=== PATIENT | male | born 1945 | race Caucasian/White ===

== ENCOUNTER 2017-06-12 13:46 | Emergency (ER) | payer MEDICARE ==
[~2017-06-12] VITALS: Ht 172.7 cm; Wt 100.0 kg
[~2017-06-12 13:46] MED LIST: ADVAIR DISK1 INH; ALL DAY10 MG PO; ASPIRIN EC81 MG PO; COMBIVIR 1501 COMBO PO; HYDROCHLOROT12.5 MG PO; LIPITOR20 M1 PO; LOSARTAN POT50 MG PO; MONTELUKAST SOD10 MG PO; MULTI VIT PO; NOVOLOG MIX SC; RANITIDINE150 M1 PO; SERTRALINE50 MG PO; ZOFRAN ODT4 MG PO; ZOFRAN4 M1 PO
[2017-06-12] MEDS ORDERED: MOTRIN400 MG PO (15:02)
[2017-06-12 15:33] VITALS: BP 140/78
== END 2017-06-12 15:33 | disposition home or self-care (01) ==
LOC: ED 13:46
DX: M25.552 Pain in left hip (principal); R10.32 Left lower quadrant pain

== ENCOUNTER 2017-08-03 10:26 | Emergency (ER) | payer MEDICARE ==
[~2017-08-03] VITALS: Ht 172.7 cm; Wt 100.0 kg
[~2017-08-03 10:26] MED LIST changes: +MOTRIN400 MG PO
[2017-08-03 11:07] LABS: HEMATOCRIT 49.6 % (39.0-50.0); HEMOGLOBIN 16.3 g/dl (14.0-18.0); IMMATURE GRANULOCYTES 2.7 % (0.0-1.0); MEAN CELL VOLUME 91.2 fL CALC (80.0-100.0); MEAN CORPUSCULAR HGB CONC 32.9 g/L CALC (32.0-36.0); PLATELET COUNT 244 thou/uL (130-400); RED BLOOD COUNT 5.44 mill/uL (4.70-6.10); RED CELL DISTRI WIDTH 13.8 % (11.5-15.5)
[2017-08-03 11:26] LABS: ANION GAP 29 (6-22 (CALC)); BUN 44 mg/dL (8-23); BUN/CREATININE RATIO 19 (12-20 (CALC)); CARBON DIOXIDE 16 mmol/l (22-30); CHLORIDE 92 mmol/l (95-108); CREATININE 2.3 mg/dL (0.7-1.3); GFR 28 ML/MIN (>=60 (CALC)); GFR FOR AFR.AMER. 34 ML/MIN (>=60 (CALC)); MANUAL DIFFERENTIAL YES; SODIUM 132 mmol/l (137-146)
[2017-08-03 11:36] LABS: BAND 25 % (0-8); PLATELET ESTIMATE NORMAL
[2017-08-03 15:17] VITALS: BP 141/60
== END 2017-08-03 15:00 | disposition short-term general hospital (02) ==
LOC: ED 10:26 → ED-I 11:48 → ED 15:00
PROVIDERS: Family Medicine
PROC: 0BH17EZ Insertion of Endotracheal Airway into Trachea, Via Natural or Artificial Opening (ICD-10-PCS; principal; 2017-08-03)
PROC: 5A1935Z Respiratory Ventilation, Less than 24 Consecutive Hours (ICD-10-PCS; 2017-08-03)
PROC: 0T9B70Z Drainage of Bladder with Drainage Device, Via Natural or Artificial Opening (ICD-10-PCS; 2017-08-03)
PROC: 02HV33Z Insertion of Infusion Device into Superior Vena Cava, Percutaneous Approach (ICD-10-PCS; 2017-08-03)
DX: A41.9 Sepsis, unspecified organism (principal); R65.21 Severe sepsis with septic shock; J18.9 Pneumonia, unspecified organism; R06.03 Acute respiratory distress; J44.0 Chronic obstructive pulmonary disease with (acute) lower respiratory infection; I10 Essential (primary) hypertension; E11.9 Type 2 diabetes mellitus without complications; Y95 Nosocomial condition
CPT/HCPCS: J0692; J2060

== ENCOUNTER 2017-08-22 12:48 | Inpatient (IN) | payer MEDICARE ==
[2017-08-22] VITALS (14 sets, daily range): BP systolic 76–148; BP diastolic 41–85
[~2017-08-22] VITALS: Ht 152.4 cm; Wt 96.0 kg
[2017-08-22] MEDS ORDERED: TYLENOL325 M2 (13:09)
[2017-08-22] MEDS ORDERED: PROVENTIL0.083 % IN (13:10)
[2017-08-22] MEDS ORDERED: AMLODIPINE BESY10 MG PO (13:11)
[2017-08-22] MEDS ORDERED: BIOTEN1 (13:11)
[2017-08-22] MEDS ORDERED: CATAPRES-T0.2 MG/21 TD (13:12)
[2017-08-22] MEDS ORDERED: LYRICA100 MG PO (13:15)
[2017-08-22] MEDS ORDERED: LEVOCETIRIZINE D5 MG (13:15)
[2017-08-22] MEDS ORDERED: METOCLOPRAMIDE H5 MG PO (13:16)
[2017-08-22] MEDS ORDERED: METOPROL TAR25 MG PO (13:16)
[2017-08-22] MEDS ORDERED: NYSTATI1 TOP (13:17)
[2017-08-22] MEDS ORDERED: MILK OF MAG30 ML/UDC PO (13:17)
[2017-08-22] MEDS ORDERED: FIRST-OMEPRAZ2 MG/ML PO (13:18)
[2017-08-22] MEDS ORDERED: PERCOCET 5/325M1 TAB PO (13:19)
[2017-08-22] MEDS ORDERED: VITAMI XX (13:19)
[2017-08-22] MEDS ORDERED: [UNRECOGNIZED DRUG - OTHER] (13:20)
[2017-08-22 13:22] LABS: IMMATURE GRANULOCYTES 0.8 % (0.0-1.0); MEAN CELL VOLUME 93.8 fL CALC (80.0-100.0); MEAN CORPUSCULAR HGB 29.7 pG CALC (26.0-32.0); MEAN CORPUSCULAR HGB CONC 31.7 g/L CALC (32.0-36.0); NEUT# 10.79 thou/uL (1.82-7.42); RED BLOOD COUNT 4.17 mill/uL (4.70-6.10); RED CELL DISTRI WIDTH 13.9 % (11.5-15.5)
[2017-08-22 13:26] LABS: HEMATOCRIT 39.1 % (39.0-50.0); HEMOGLOBIN 12.4 g/dl (14.0-18.0)
[2017-08-22 13:36] LABS: ALBUMIN 3.4 g/dL (3.2-5.0); BILIRUBIN, TOTAL 0.4 mg/dL (0.0-1.4); CREATININE 2.3 mg/dL (0.7-1.3); TOTAL PROTEIN 7.9 g/dL (6.3-8.2)
[2017-08-22 13:38] LABS: INFLUENZA A NONE DETECTED (NONE DETECT)
[2017-08-22 13:39] LABS: INFLUENZA B POSITIVE (NONE DETECT)
[2017-08-22 13:42] LABS: POTASSIUM 5.7 mmol/l (3.5-5.1)
[2017-08-23] VITALS (51 sets, daily range): BP systolic 98–168; BP diastolic 51–77
[2017-08-23 05:15] LABS: IMMATURE GRANULOCYTES 0.4 % (0.0-1.0); MEAN CELL VOLUME 93.5 fL CALC (80.0-100.0); MEAN CORPUSCULAR HGB 29.5 pG CALC (26.0-32.0); MEAN CORPUSCULAR HGB CONC 31.6 g/L CALC (32.0-36.0); NEUT# 9.81 thou/uL (1.82-7.42); RED BLOOD COUNT 3.52 mill/uL (4.70-6.10); RED CELL DISTRI WIDTH 13.7 % (11.5-15.5)
[2017-08-23 05:21] LABS: HEMATOCRIT 32.9 % (39.0-50.0); HEMOGLOBIN 10.4 g/dl (14.0-18.0)
[2017-08-23 05:31] LABS: BILIRUBIN, TOTAL 0.3 mg/dL (0.0-1.4); CREATININE 1.9 mg/dL (0.7-1.3)
[2017-08-23 05:35] LABS: ALBUMIN 2.5 g/dL (3.2-5.0); POTASSIUM 5.9 mmol/l (3.5-5.1); TOTAL PROTEIN 6.2 g/dL (6.3-8.2)
[2017-08-24] VITALS (11 sets, daily range): BP systolic 127–185; BP diastolic 53–82
[2017-08-24 05:32] LABS: HEMATOCRIT 33.7 % (39.0-50.0); HEMOGLOBIN 10.8 g/dl (14.0-18.0); IMMATURE GRANULOCYTES 0.5 % (0.0-1.0); MEAN CELL VOLUME 93.6 fL CALC (80.0-100.0); NEUT# 10.08 thou/uL (1.82-7.42); RED BLOOD COUNT 3.6 mill/uL (4.70-6.10); RED CELL DISTRI WIDTH 13.7 % (11.5-15.5)
[2017-08-24 05:44] LABS: ALBUMIN 2.6 g/dL (3.2-5.0); BILIRUBIN, TOTAL 0.3 mg/dL (0.0-1.4); CREATININE 1.5 mg/dL (0.7-1.3); TOTAL PROTEIN 6.3 g/dL (6.3-8.2)
[2017-08-24 05:49] LABS: POTASSIUM 4.6 mmol/l (3.5-5.1)
[2017-08-25] VITALS (13 sets, daily range): BP systolic 127–202; BP diastolic 58–98
[2017-08-25 08:55] LABS: HEMATOCRIT 36.6 % (39.0-50.0); HEMOGLOBIN 11.5 g/dl (14.0-18.0); IMMATURE GRANULOCYTES 0.8 % (0.0-1.0); MEAN CELL VOLUME 94.3 fL CALC (80.0-100.0); MEAN CORPUSCULAR HGB 29.6 pG CALC (26.0-32.0); MEAN CORPUSCULAR HGB CONC 31.4 g/L CALC (32.0-36.0); NEUT# 8.5 thou/uL (1.82-7.42); RED BLOOD COUNT 3.88 mill/uL (4.70-6.10)
[2017-08-25 09:23] LABS: ANION GAP 14 (6-22 (CALC)); BUN 44 mg/dL (8-23); BUN/CREATININE RATIO 36 (12-20 (CALC)); CARBON DIOXIDE 28 mmol/l (22-30); CHLORIDE 111 mmol/l (95-108); CREATININE 1.3 mg/dL (0.7-1.3); GFR 55 ML/MIN (>=60 (CALC)); GFR FOR AFR.AMER. > 60 ML/MIN (>=60 (CALC)); POTASSIUM 4.4 mmol/l (3.5-5.1); SODIUM 149 mmol/l (137-146)
[2017-08-25 14:34] LABS: PROTHROMBIN TIME 10.9 SECONDS (9.0-12.5)
[2017-08-26] VITALS (13 sets, daily range): BP systolic 151–191; BP diastolic 64–93
[2017-08-26 05:10] LABS: ALBUMIN 2.6 g/dL (3.2-5.0); ALKALINE PHOSPHATASE 79 u/l (38-126); ANION GAP 14 (6-22 (CALC)); BILIRUBIN, TOTAL 0.2 mg/dL (0.0-1.4); BUN 43 mg/dL (8-23); BUN/CREATININE RATIO 33 (12-20 (CALC)); CARBON DIOXIDE 29 mmol/l (22-30); CHLORIDE 114 mmol/l (95-108); CREATININE 1.3 mg/dL (0.7-1.3); GFR 55 ML/MIN (>=60 (CALC)); GFR FOR AFR.AMER. > 60 ML/MIN (>=60 (CALC)); POTASSIUM 4.8 mmol/l (3.5-5.1); SGOT/AST 27 u/l (19-48); SGPT/ALT 41 u/l (11-66); SODIUM 152 mmol/l (137-146); TOTAL PROTEIN 6.2 g/dL (6.3-8.2)
[2017-08-26 05:52] LABS: HEMATOCRIT 36.7 % (39.0-50.0); HEMOGLOBIN 11.5 g/dl (14.0-18.0); IMMATURE GRANULOCYTES 1.4 % (0.0-1.0); MEAN CELL VOLUME 94.8 fL CALC (80.0-100.0); MEAN CORPUSCULAR HGB 29.7 pG CALC (26.0-32.0); MEAN CORPUSCULAR HGB CONC 31.3 g/L CALC (32.0-36.0); NEUT# 6.43 thou/uL (1.82-7.42); RED BLOOD COUNT 3.87 mill/uL (4.70-6.10)
[2017-08-27] VITALS (10 sets, daily range): BP systolic 158–204; BP diastolic 59–92
[2017-08-27 05:28] LABS: HEMATOCRIT 35.8 % (39.0-50.0); HEMOGLOBIN 11.1 g/dl (14.0-18.0); IMMATURE GRANULOCYTES 0.3 % (0.0-1.0); MEAN CELL VOLUME 93.5 fL CALC (80.0-100.0); NEUT# 7.71 thou/uL (1.82-7.42); RED BLOOD COUNT 3.83 mill/uL (4.70-6.10); RED CELL DISTRI WIDTH 13.5 % (11.5-15.5)
[2017-08-27 05:42] LABS: ALBUMIN 2.5 g/dL (3.2-5.0); ALKALINE PHOSPHATASE 68 u/l (38-126); ANION GAP 12 (6-22 (CALC)); BILIRUBIN, TOTAL 0.2 mg/dL (0.0-1.4); BUN 43 mg/dL (8-23); BUN/CREATININE RATIO 37 (12-20 (CALC)); CARBON DIOXIDE 33 mmol/l (22-30); CHLORIDE 111 mmol/l (95-108); CREATININE 1.2 mg/dL (0.7-1.3); GFR 60 ML/MIN (>=60 (CALC)); GFR FOR AFR.AMER. > 60 ML/MIN (>=60 (CALC)); POTASSIUM 4.6 mmol/l (3.5-5.1); SGOT/AST 22 u/l (19-48); SGPT/ALT 36 u/l (11-66); SODIUM 152 mmol/l (137-146); TOTAL PROTEIN 5.9 g/dL (6.3-8.2)
[2017-08-28 03:45] VITALS: BP 172/74
[2017-08-28 04:58] LABS: HEMATOCRIT 34.2 % (39.0-50.0); HEMOGLOBIN 10.9 g/dl (14.0-18.0); IMMATURE GRANULOCYTES 0.6 % (0.0-1.0); MEAN CELL VOLUME 91.2 fL CALC (80.0-100.0); MEAN CORPUSCULAR HGB 29.1 pG CALC (26.0-32.0); MEAN CORPUSCULAR HGB CONC 31.9 g/L CALC (32.0-36.0); NEUT# 6.94 thou/uL (1.82-7.42); RED BLOOD COUNT 3.75 mill/uL (4.70-6.10); RED CELL DISTRI WIDTH 13.2 % (11.5-15.5)
[2017-08-28 05:20] LABS: ANION GAP 11 (6-22 (CALC)); BUN 38 mg/dL (8-23); BUN/CREATININE RATIO 36 (12-20 (CALC)); CARBON DIOXIDE 35 mmol/l (22-30); CHLORIDE 106 mmol/l (95-108); CREATININE 1.1 mg/dL (0.7-1.3); GFR > 60 ML/MIN (>=60 (CALC)); GFR FOR AFR.AMER. > 60 ML/MIN (>=60 (CALC)); POTASSIUM 4.3 mmol/l (3.5-5.1); SODIUM 148 mmol/l (137-146)
[2017-08-28 07:45] VITALS: BP 193/83
[2017-08-28 16:00] VITALS: BP 165/79
[2017-08-28 19:57] VITALS: BP 179/82
[2017-08-29 00:34] VITALS: BP 164/72
[2017-08-29 05:04] LABS: HEMATOCRIT 35.3 % (39.0-50.0); HEMOGLOBIN 11.7 g/dl (14.0-18.0); IMMATURE GRANULOCYTES 1.6 % (0.0-1.0); MEAN CELL VOLUME 89.1 fL CALC (80.0-100.0); MEAN CORPUSCULAR HGB 29.5 pG CALC (26.0-32.0); MEAN CORPUSCULAR HGB CONC 33.1 g/L CALC (32.0-36.0); NEUT# 6.04 thou/uL (1.82-7.42); RED BLOOD COUNT 3.96 mill/uL (4.70-6.10); RED CELL DISTRI WIDTH 12.9 % (11.5-15.5)
[2017-08-29 05:11] VITALS: BP 169/104
[2017-08-29 05:24] LABS: ANION GAP 12 (6-22 (CALC)); BUN 42 mg/dL (8-23); BUN/CREATININE RATIO 40 (12-20 (CALC)); CARBON DIOXIDE 33 mmol/l (22-30); CHLORIDE 101 mmol/l (95-108); GFR > 60 ML/MIN (>=60 (CALC)); GFR FOR AFR.AMER. > 60 ML/MIN (>=60 (CALC)); SODIUM 142 mmol/l (137-146)
[2017-08-29 08:00] VITALS: BP 170/78
[2017-08-29 11:06] VITALS: BP 160/88
[2017-08-29 16:05] VITALS: BP 154/69
[2017-08-29 19:50] VITALS: BP 159/70
[2017-08-30 04:33] VITALS: BP 170/71
[2017-08-30 07:11] VITALS: BP 161/69
[2017-08-30 15:27] VITALS: BP 167/75
== END 2017-08-30 16:47 | DRG 177 ==
LOC: ED 12:48 → ED-I 13:55 → ED 14:17 → MS2 14:18 → ICU 14:18 → MS2 08-27 11:50
PROVIDERS: Emergency Medicine; ADMIT Internal Medicine Geriatric Medicine; ATTEND Internal Medicine Geriatric Medicine
PROC: 0T9B70Z Drainage of Bladder with Drainage Device, Via Natural or Artificial Opening (ICD-10-PCS; principal; 2017-08-22)
PROC: 5A09357 Assistance with Respiratory Ventilation, Less than 24 Consecutive Hours, Continuous Positive Airway Pressure (ICD-10-PCS; 2017-08-22)
PROC: 02HV33Z Insertion of Infusion Device into Superior Vena Cava, Percutaneous Approach (ICD-10-PCS; 2017-08-25)
PROC: B518ZZA Fluoroscopy of Superior Vena Cava, Guidance (ICD-10-PCS; 2017-08-25)
PROC: 0W993ZZ Drainage of Right Pleural Cavity, Percutaneous Approach (ICD-10-PCS; 2017-08-26)
DX: J69.0 Pneumonitis due to inhalation of food and vomit (principal); J96.01 Acute respiratory failure with hypoxia; J91.8 Pleural effusion in other conditions classified elsewhere; I95.9 Hypotension, unspecified; E11.22 Type 2 diabetes mellitus with diabetic chronic kidney disease; R68.0 Hypothermia, not associated with low environmental temperature; J44.9 Chronic obstructive pulmonary disease, unspecified; I12.9 Hypertensive chronic kidney disease with stage 1 through stage 4 chronic kidney disease, or unspecified chronic kidney disease; N18.9 Chronic kidney disease, unspecified; E66.9 Obesity, unspecified; I25.10 Atherosclerotic heart disease of native coronary artery without angina pectoris; K21.9 Gastro-esophageal reflux disease without esophagitis; M19.90 Unspecified osteoarthritis, unspecified site; M54.5 Low back pain; G89.29 Other chronic pain; Z93.1 Gastrostomy status; Z79.4 Long term (current) use of insulin
CPT/HCPCS: J3370; Q9967

== ENCOUNTER 2017-11-07 11:07 | Inpatient (IN) | payer MEDICARE ==
[2017-11-07] VITALS (10 sets, daily range): BP systolic 104–136; BP diastolic 55–70
[~2017-11-07] VITALS: Ht 172.7 cm; Wt 88.0 kg
[~2017-11-07 11:07] MED LIST changes: +AMLODIPINE BESY10 MG PO; +BIOTEN1; +CATAPRES-T0.2 MG/21 TD; +FIRST-OMEPRAZ2 MG/ML PO; +LEVOCETIRIZINE D5 MG; +LYRICA100 MG PO; +METOCLOPRAMIDE H5 MG PO; +METOPROL TAR25 MG PO; +MILK OF MAG30 ML/UDC PO; +NYSTATI1 TOP; +PERCOCET 5/325M1 TAB PO; +PROVENTIL0.083 % IN; +TYLENOL325 M2; +VITAMI XX; +[UNRECOGNIZED DRUG - OTHER]
[2017-11-07 11:39] LABS: HEMOGLOBIN 13.1 g/dl (14.0-18.0); IMMATURE GRANULOCYTES 0.5 % (0.0-5.0); MEAN CELL VOLUME 89.6 fL CALC (80.0-100.0); MEAN CORPUSCULAR HGB 30.9 pG CALC (26.0-32.0); MEAN CORPUSCULAR HGB CONC 34.5 g/L CALC (32.0-36.0); RED BLOOD COUNT 4.24 mill/uL (4.70-6.10); RED CELL DISTRI WIDTH 13.9 % (11.5-15.5)
[2017-11-07] MEDS ORDERED: FUROSEMIDE20 MG PO (11:39)
[2017-11-07] MEDS ORDERED: MULIT-VITAMI PEG (11:41)
[2017-11-07] MEDS ORDERED: LEVEMIR100 UNIT/M SC (11:41)
[2017-11-07] MEDS ORDERED: FAMOTIDINE20 M1 PO (11:43)
[2017-11-07] MEDS ORDERED: METOPROL TAR25 MG PO (11:44)
[2017-11-07] MEDS ORDERED: HUMALOG100 UNIT/M SC (11:46)
[2017-11-07] MEDS ORDERED: SERTRALINE HCL50 MG PO (11:46)
[2017-11-07] MEDS ORDERED: MAGNESIUM400 M1 PO (11:47)
[2017-11-07] MEDS ORDERED: VIT B-COMPLX100 MG PO (11:48)
[2017-11-07] MEDS ORDERED: VITAMIN B-12500 MCG PO (11:49)
[2017-11-07 11:57] LABS: BILIRUBIN, TOTAL 0.8 mg/dL (0.0-1.4); BUN 32 mg/dL (8-23); BUN/CREATININE RATIO 24 (12-20 (CALC)); CHLORIDE 98 mmol/l (95-108); CREATININE 1.3 mg/dL (0.7-1.3); GFR 55 ML/MIN (>=60 (CALC)); GFR FOR AFR.AMER. > 60 ML/MIN (>=60 (CALC)); LIPASE 51 u/l (23-300); POTASSIUM 4.5 mmol/l (3.5-5.1); SGOT/AST 22 u/l (19-48); SGPT/ALT 27 u/l (11-66); SODIUM 138 mmol/l (137-146)
[2017-11-07 12:06] LABS: ALBUMIN 4.3 g/dL (3.2-5.0); ALKALINE PHOSPHATASE 155 u/l (38-126); ANION GAP 22 (6-22 (CALC)); CARBON DIOXIDE 23 mmol/l (22-30); TOTAL PROTEIN 7.8 g/dL (6.3-8.2)
[2017-11-07 12:53] LABS: URINE BILIRUBIN - DIPSTICK NEGATIVE (NEGATIVE); URINE BLOOD DIPSTICK NEGATIVE (NEGATIVE); URINE COLOR YELLOW; URINE GLUCOSE - DIPSTICK 100 mg/dL (NEGATIVE); URINE KETONE NEGATIVE (NEGATIVE); URINE LEUK ESTERASE NEGATIVE (NEGATIVE); URINE NITRITE - DIPSTICK NEGATIVE (Negative); URINE PH 6.5 (4.5-8.0); URINE PROTEIN - DIPSTICK 30 mg/dL (NEG-TRACE); URINE SPECIFIC GRAVITY <=1.005; URINE UROBILINOGEN - DIPSTICK 0.2 E.U./dL (0.2)
[2017-11-07 12:54] LABS: URINE CLARITY SL CLOUDY
[2017-11-07 12:55] LABS: URINE EPITHELIAL CELLS FEW EPI/hpf (0-FEW); URINE MUCUS FEW hpf (NONE-FEW)
[2017-11-08] VITALS (12 sets, daily range): BP systolic 103–186; BP diastolic 58–93
[2017-11-08 05:10] LABS: HEMATOCRIT 32.2 % (39.0-50.0); HEMOGLOBIN 10.8 g/dl (14.0-18.0); IMMATURE GRANULOCYTES 0.4 % (0.0-5.0); MEAN CELL VOLUME 91.2 fL CALC (80.0-100.0); MEAN CORPUSCULAR HGB 30.6 pG CALC (26.0-32.0); MEAN CORPUSCULAR HGB CONC 33.5 g/L CALC (32.0-36.0); NEUT# 7.68 thou/uL (1.82-7.42); RED BLOOD COUNT 3.53 mill/uL (4.70-6.10); RED CELL DISTRI WIDTH 13.9 % (11.5-15.5)
[2017-11-08 05:19] LABS: ALBUMIN 3.3 g/dL (3.2-5.0); ALKALINE PHOSPHATASE 109 u/l (38-126); ANION GAP 15 (6-22 (CALC)); BILIRUBIN, TOTAL 0.6 mg/dL (0.0-1.4); BUN 22 mg/dL (8-23); BUN/CREATININE RATIO 21 (12-20 (CALC)); CARBON DIOXIDE 24 mmol/l (22-30); CHLORIDE 107 mmol/l (95-108); GFR > 60 ML/MIN (>=60 (CALC)); GFR FOR AFR.AMER. > 60 ML/MIN (>=60 (CALC)); POTASSIUM 4.1 mmol/l (3.5-5.1); SGOT/AST 17 u/l (19-48); SGPT/ALT 25 u/l (11-66); SODIUM 142 mmol/l (137-146); TOTAL PROTEIN 6.2 g/dL (6.3-8.2)
[2017-11-09] VITALS (11 sets, daily range): BP systolic 110–181; BP diastolic 56–80
[2017-11-09 05:21] LABS: HEMATOCRIT 36.2 % (39.0-50.0); HEMOGLOBIN 12.3 g/dl (14.0-18.0); IMMATURE GRANULOCYTES 0.6 % (0.0-5.0); MEAN CORPUSCULAR HGB 30.6 pG CALC (26.0-32.0); NEUT# 9.26 thou/uL (1.82-7.42); RED BLOOD COUNT 4.02 mill/uL (4.70-6.10); RED CELL DISTRI WIDTH 13.5 % (11.5-15.5)
[2017-11-09 05:33] LABS: ALBUMIN 3.8 g/dL (3.2-5.0); ALKALINE PHOSPHATASE 129 u/l (38-126); ANION GAP 20 (6-22 (CALC)); BILIRUBIN, TOTAL 0.7 mg/dL (0.0-1.4); BUN 18 mg/dL (8-23); BUN/CREATININE RATIO 19 (12-20 (CALC)); CARBON DIOXIDE 22 mmol/l (22-30); CHLORIDE 106 mmol/l (95-108); GFR > 60 ML/MIN (>=60 (CALC)); GFR FOR AFR.AMER. > 60 ML/MIN (>=60 (CALC)); POTASSIUM 3.6 mmol/l (3.5-5.1); SGOT/AST 24 u/l (19-48); SGPT/ALT 26 u/l (11-66); SODIUM 145 mmol/l (137-146); TOTAL PROTEIN 7.2 g/dL (6.3-8.2)
[2017-11-10] VITALS (11 sets, daily range): BP systolic 113–176; BP diastolic 54–101
[2017-11-10 05:21] LABS: HEMATOCRIT 35.3 % (39.0-50.0); HEMOGLOBIN 12.1 g/dl (14.0-18.0); IMMATURE GRANULOCYTES 0.2 % (0.0-5.0); MEAN CORPUSCULAR HGB 31.2 pG CALC (26.0-32.0); MEAN CORPUSCULAR HGB CONC 34.3 g/L CALC (32.0-36.0); NEUT# 5.39 thou/uL (1.82-7.42); RED BLOOD COUNT 3.88 mill/uL (4.70-6.10); RED CELL DISTRI WIDTH 13.6 % (11.5-15.5)
[2017-11-10 05:40] LABS: ANION GAP 13 (6-22 (CALC)); BUN 20 mg/dL (8-23); BUN/CREATININE RATIO 22 (12-20 (CALC)); CARBON DIOXIDE 27 mmol/l (22-30); CHLORIDE 110 mmol/l (95-108); CREATININE 0.9 mg/dL (0.7-1.3); GFR > 60 ML/MIN (>=60 (CALC)); GFR FOR AFR.AMER. > 60 ML/MIN (>=60 (CALC)); POTASSIUM 3.6 mmol/l (3.5-5.1); SODIUM 145 mmol/l (137-146)
[2017-11-11] VITALS (14 sets, daily range): BP systolic 146–196; BP diastolic 67–94
[2017-11-11 04:39] LABS: HEMATOCRIT 38.2 % (39.0-50.0); IMMATURE GRANULOCYTES 0.5 % (0.0-5.0); MEAN CELL VOLUME 88.8 fL CALC (80.0-100.0); MEAN CORPUSCULAR HGB 30.2 pG CALC (26.0-32.0); NEUT# 7.3 thou/uL (1.82-7.42); RED BLOOD COUNT 4.3 mill/uL (4.70-6.10); RED CELL DISTRI WIDTH 13.4 % (11.5-15.5)
[2017-11-11 04:57] LABS: ANION GAP 13 (6-22 (CALC)); BUN 20 mg/dL (8-23); BUN/CREATININE RATIO 23 (12-20 (CALC)); CARBON DIOXIDE 27 mmol/l (22-30); CHLORIDE 110 mmol/l (95-108); CREATININE 0.9 mg/dL (0.7-1.3); GFR > 60 ML/MIN (>=60 (CALC)); GFR FOR AFR.AMER. > 60 ML/MIN (>=60 (CALC)); POTASSIUM 3.1 mmol/l (3.5-5.1); SODIUM 146 mmol/l (137-146)
[2017-11-12 04:34] VITALS: BP 177/84
[2017-11-12 05:14] LABS: HEMOGLOBIN 11.6 g/dl (14.0-18.0); IMMATURE GRANULOCYTES 1.1 % (0.0-5.0); MEAN CELL VOLUME 91.4 fL CALC (80.0-100.0); MEAN CORPUSCULAR HGB 30.3 pG CALC (26.0-32.0); MEAN CORPUSCULAR HGB CONC 33.1 g/L CALC (32.0-36.0); NEUT# 7.41 thou/uL (1.82-7.42); RED BLOOD COUNT 3.83 mill/uL (4.70-6.10); RED CELL DISTRI WIDTH 13.9 % (11.5-15.5)
[2017-11-12 05:36] LABS: ANION GAP 13 (6-22 (CALC)); BUN 22 mg/dL (8-23); BUN/CREATININE RATIO 24 (12-20 (CALC)); CARBON DIOXIDE 26 mmol/l (22-30); CHLORIDE 111 mmol/l (95-108); CREATININE 0.9 mg/dL (0.7-1.3); GFR > 60 ML/MIN (>=60 (CALC)); GFR FOR AFR.AMER. > 60 ML/MIN (>=60 (CALC)); POTASSIUM 3.1 mmol/l (3.5-5.1); SODIUM 147 mmol/l (137-146)
[2017-11-12 08:17] VITALS: BP 183/71
[2017-11-12 14:56] VITALS: BP 174/78
[2017-11-12 16:46] VITALS: BP 145/86
[2017-11-12 19:45] VITALS: BP 175/82
[2017-11-12 22:39] VITALS: BP 145/67
[2017-11-13 00:32] VITALS: BP 170/73
[2017-11-13 01:45] VITALS: BP 136/61
[2017-11-13 04:29] LABS: HEMATOCRIT 33.8 % (39.0-50.0); HEMOGLOBIN 11.5 g/dl (14.0-18.0); IMMATURE GRANULOCYTES 0.8 % (0.0-5.0); MEAN CELL VOLUME 90.4 fL CALC (80.0-100.0); MEAN CORPUSCULAR HGB 30.7 pG CALC (26.0-32.0); NEUT# 6.04 thou/uL (1.82-7.42); RED BLOOD COUNT 3.74 mill/uL (4.70-6.10); RED CELL DISTRI WIDTH 13.6 % (11.5-15.5)
[2017-11-13 04:46] LABS: ANION GAP 12 (6-22 (CALC)); BUN 18 mg/dL (8-23); BUN/CREATININE RATIO 20 (12-20 (CALC)); CARBON DIOXIDE 27 mmol/l (22-30); CHLORIDE 108 mmol/l (95-108); CREATININE 0.9 mg/dL (0.7-1.3); GFR > 60 ML/MIN (>=60 (CALC)); GFR FOR AFR.AMER. > 60 ML/MIN (>=60 (CALC)); POTASSIUM 3.1 mmol/l (3.5-5.1); SODIUM 143 mmol/l (137-146)
[2017-11-13 05:00] VITALS: BP 160/80
[2017-11-13 07:51] VITALS: BP 140/56
[2017-11-13 16:00] VITALS: BP 177/83
[2017-11-13 19:45] VITALS: BP 148/59
[2017-11-14 04:04] VITALS: BP 187/76
[2017-11-14 04:56] LABS: HEMATOCRIT 30.7 % (39.0-50.0); HEMOGLOBIN 10.6 g/dl (14.0-18.0); IMMATURE GRANULOCYTES 0.9 % (0.0-5.0); MEAN CELL VOLUME 89.8 fL CALC (80.0-100.0); MEAN CORPUSCULAR HGB CONC 34.5 g/L CALC (32.0-36.0); NEUT# 4.63 thou/uL (1.82-7.42); RED BLOOD COUNT 3.42 mill/uL (4.70-6.10); RED CELL DISTRI WIDTH 13.2 % (11.5-15.5)
[2017-11-14 05:20] LABS: ANION GAP 11 (6-22 (CALC)); BUN 17 mg/dL (8-23); BUN/CREATININE RATIO 20 (12-20 (CALC)); CARBON DIOXIDE 28 mmol/l (22-30); CHLORIDE 104 mmol/l (95-108); CREATININE 0.9 mg/dL (0.7-1.3); GFR > 60 ML/MIN (>=60 (CALC)); GFR FOR AFR.AMER. > 60 ML/MIN (>=60 (CALC)); POTASSIUM 3.3 mmol/l (3.5-5.1); SODIUM 140 mmol/l (137-146)
[2017-11-14 06:00] VITALS: BP 149/58
[2017-11-14 08:30] VITALS: BP 189/73
[2017-11-14 11:30] VITALS: BP 174/78
[2017-11-14 16:10] VITALS: BP 165/72
[2017-11-14 19:00] VITALS: BP 182/83
[2017-11-14 20:49] LABS: C. DIFFICILE TOXIN A&B NEGATIVE (NEGATIVE)
[2017-11-15 00:50] VITALS: BP 176/69
[2017-11-15 05:01] VITALS: BP 153/59
[2017-11-15 05:56] LABS: HEMATOCRIT 31.6 % (39.0-50.0); IMMATURE GRANULOCYTES 0.9 % (0.0-5.0); MEAN CELL VOLUME 87.3 fL CALC (80.0-100.0); MEAN CORPUSCULAR HGB 30.4 pG CALC (26.0-32.0); MEAN CORPUSCULAR HGB CONC 34.8 g/L CALC (32.0-36.0); NEUT# 4.09 thou/uL (1.82-7.42); RED BLOOD COUNT 3.62 mill/uL (4.70-6.10)
[2017-11-15 06:11] LABS: ANION GAP 14 (6-22 (CALC)); BUN 13 mg/dL (8-23); BUN/CREATININE RATIO 17 (12-20 (CALC)); CARBON DIOXIDE 27 mmol/l (22-30); CHLORIDE 99 mmol/l (95-108); CREATININE 0.8 mg/dL (0.7-1.3); GFR > 60 ML/MIN (>=60 (CALC)); GFR FOR AFR.AMER. > 60 ML/MIN (>=60 (CALC)); POTASSIUM 3.4 mmol/l (3.5-5.1); SODIUM 137 mmol/l (137-146)
[2017-11-15 08:00] VITALS: BP 152/68
[2017-11-15 15:06] VITALS: BP 162/71
[2017-11-15 19:00] VITALS: BP 155/65
[2017-11-16 04:53] VITALS: BP 168/67
[2017-11-16 05:34] LABS: HEMATOCRIT 32.3 % (39.0-50.0); HEMOGLOBIN 11.4 g/dl (14.0-18.0); IMMATURE GRANULOCYTES 0.7 % (0.0-5.0); MEAN CELL VOLUME 86.6 fL CALC (80.0-100.0); MEAN CORPUSCULAR HGB 30.6 pG CALC (26.0-32.0); MEAN CORPUSCULAR HGB CONC 35.3 g/L CALC (32.0-36.0); NEUT# 3.8 thou/uL (1.82-7.42); RED BLOOD COUNT 3.73 mill/uL (4.70-6.10); RED CELL DISTRI WIDTH 12.8 % (11.5-15.5)
[2017-11-16 05:36] LABS: ANION GAP 15 (6-22 (CALC)); BUN 12 mg/dL (8-23); BUN/CREATININE RATIO 14 (12-20 (CALC)); CARBON DIOXIDE 28 mmol/l (22-30); CHLORIDE 97 mmol/l (95-108); CREATININE 0.8 mg/dL (0.7-1.3); GFR > 60 ML/MIN (>=60 (CALC)); GFR FOR AFR.AMER. > 60 ML/MIN (>=60 (CALC)); POTASSIUM 3.3 mmol/l (3.5-5.1); SODIUM 137 mmol/l (137-146)
[2017-11-16 08:02] VITALS: BP 181/91
[2017-11-16 11:20] VITALS: BP 169/70
[2017-11-16 15:44] VITALS: BP 150/73
[2017-11-16 20:00] VITALS: BP 148/79
[2017-11-17 04:00] VITALS: BP 151/68
[2017-11-17 05:08] LABS: HEMATOCRIT 32.7 % (39.0-50.0); HEMOGLOBIN 11.4 g/dl (14.0-18.0); IMMATURE GRANULOCYTES 0.6 % (0.0-5.0); MEAN CELL VOLUME 86.5 fL CALC (80.0-100.0); MEAN CORPUSCULAR HGB 30.2 pG CALC (26.0-32.0); MEAN CORPUSCULAR HGB CONC 34.9 g/L CALC (32.0-36.0); RED BLOOD COUNT 3.78 mill/uL (4.70-6.10)
[2017-11-17 05:28] LABS: ANION GAP 14 (6-22 (CALC)); BUN 14 mg/dL (8-23); BUN/CREATININE RATIO 15 (12-20 (CALC)); CARBON DIOXIDE 28 mmol/l (22-30); CHLORIDE 98 mmol/l (95-108); CREATININE 0.9 mg/dL (0.7-1.3); GFR > 60 ML/MIN (>=60 (CALC)); GFR FOR AFR.AMER. > 60 ML/MIN (>=60 (CALC)); POTASSIUM 3.7 mmol/l (3.5-5.1); SODIUM 136 mmol/l (137-146)
[2017-11-17] MEDS ORDERED: LEVAQUIN750 MG PO (08:32)
[2017-11-17 09:15] VITALS: BP 155/73
[2017-11-17 09:20] VITALS: BP 155/73
== END 2017-11-17 10:33 | disposition home health service (06) | DRG 178 ==
LOC: ED 11:07 → ED-I 13:33 → ED 14:08 → ICU 14:09 → MS2 11-11 16:42
PROVIDERS: Emergency Medicine; ADMIT Internal Medicine Geriatric Medicine; ATTEND Internal Medicine Geriatric Medicine
PROC: 0D20XUZ Change Feeding Device in Upper Intestinal Tract, External Approach (ICD-10-PCS; principal; 2017-11-11)
DX: J69.0 Pneumonitis due to inhalation of food and vomit (principal); E87.2 Acidosis; J91.8 Pleural effusion in other conditions classified elsewhere; K94.23 Gastrostomy malfunction; E11.43 Type 2 diabetes mellitus with diabetic autonomic (poly)neuropathy; K31.84 Gastroparesis; I12.9 Hypertensive chronic kidney disease with stage 1 through stage 4 chronic kidney disease, or unspecified chronic kidney disease; E11.22 Type 2 diabetes mellitus with diabetic chronic kidney disease; N18.9 Chronic kidney disease, unspecified; J44.9 Chronic obstructive pulmonary disease, unspecified; K29.70 Gastritis, unspecified, without bleeding; I25.10 Atherosclerotic heart disease of native coronary artery without angina pectoris; K21.9 Gastro-esophageal reflux disease without esophagitis; K27.9 Peptic ulcer, site unspecified, unspecified as acute or chronic, without hemorrhage or perforation; M19.90 Unspecified osteoarthritis, unspecified site; G89.29 Other chronic pain; M54.5 Low back pain; R09.02 Hypoxemia; F41.1 Generalized anxiety disorder; Y83.1 Surgical operation with implant of artificial internal device as the cause of abnormal reaction of the patient, or of later complication, without mention of misadventure at the time of the procedure
CPT/HCPCS: Q9967; S0164

== ENCOUNTER 2018-01-20 06:25 | Day surgery (SDC) | payer MEDICARE ==
[~2018-01-20 06:25] MED LIST changes: +FAMOTIDINE20 M1 PO; +FUROSEMIDE20 MG PO; +HUMALOG100 UNIT/M SC; +LEVAQUIN750 MG PO; +LEVEMIR100 UNIT/M SC; -LEVOCETIRIZINE D5 MG; +LEVOCETIRIZINE D5 MG PO; +LOSARTAN/HCT1 TA1 PO; +LYRICA50 MG PO; +MAGNESIUM400 M1 PO; +MULIT-VITAMI PEG; +OMEPRAZOLE20 M2 PO; +SERTRALINE HCL50 MG PO; +VIT B-COMPLX100 MG PO; +VITAMIN B-12500 MCG PO
[2018-01-20 08:35] VITALS: BP 98/56
== END 2018-01-20 08:45 | disposition home or self-care (01) ==
LOC: ENDO 06:25 → ORM 12:00 → ENDO 12:00
PROVIDERS: ATTEND Internal Medicine Gastroenterology
PROC: 0DB68ZX Excision of Stomach, Via Natural or Artificial Opening Endoscopic, Diagnostic (ICD-10-PCS; principal; 2018-01-20)
PROC: 0D758ZZ Dilation of Esophagus, Via Natural or Artificial Opening Endoscopic (ICD-10-PCS; 2018-01-20)
PROC: 0DP64UZ Removal of Feeding Device from Stomach, Percutaneous Endoscopic Approach (ICD-10-PCS; 2018-01-20)
PROC: 0DBK8ZX Excision of Ascending Colon, Via Natural or Artificial Opening Endoscopic, Diagnostic (ICD-10-PCS; 2018-01-20)
PROC: 0DBL8ZX Excision of Transverse Colon, Via Natural or Artificial Opening Endoscopic, Diagnostic (ICD-10-PCS; 2018-01-20)
PROC: 0DBN8ZX Excision of Sigmoid Colon, Via Natural or Artificial Opening Endoscopic, Diagnostic (ICD-10-PCS; 2018-01-20)
DX: R13.10 Dysphagia, unspecified (principal); K29.70 Gastritis, unspecified, without bleeding; K31.89 Other diseases of stomach and duodenum; Z43.1 Encounter for attention to gastrostomy; Z12.11 Encounter for screening for malignant neoplasm of colon; D12.0 Benign neoplasm of cecum; D12.2 Benign neoplasm of ascending colon; D12.5 Benign neoplasm of sigmoid colon; D12.3 Benign neoplasm of transverse colon; K57.30 Diverticulosis of large intestine without perforation or abscess without bleeding; K64.4 Residual hemorrhoidal skin tags; K64.8 Other hemorrhoids; I10 Essential (primary) hypertension; E11.9 Type 2 diabetes mellitus without complications; J44.9 Chronic obstructive pulmonary disease, unspecified

== ENCOUNTER → 2018-06-06 | Outpatient (REF) | payer MEDICARE ==
[2018-06-06 08:02] LABS: ALBUMIN 4.2 g/dL (3.2-5.0); BILIRUBIN, TOTAL 0.6 mg/dL (0.0-1.4); CHOLESTEROL HDL RATIO 3.5 (<4.4 (CALC)); TOTAL PROTEIN 7.4 g/dL (6.3-8.2)
== END | disposition home or self-care (01) ==
LOC: LAB 06:59
PROVIDERS: ATTEND Internal Medicine Geriatric Medicine
DX: E11.65 Type 2 diabetes mellitus with hyperglycemia (principal); E78.2 Mixed hyperlipidemia

== ENCOUNTER → 2018-07-05 | Outpatient (REF) | payer MEDICARE ==
[2018-07-05 08:01] LABS: HEMATOCRIT 43.4 % (39.0-50.0); HEMOGLOBIN 14.1 g/dl (14.0-18.0); IMMATURE GRANULOCYTES 0.4 % (0.0-5.0); MEAN CELL VOLUME 89.7 fL CALC (80.0-100.0); MEAN CORPUSCULAR HGB 29.1 pG CALC (26.0-32.0); MEAN CORPUSCULAR HGB CONC 32.5 g/L CALC (32.0-36.0); NEUT# 4.26 thou/uL (1.82-7.42); RED BLOOD COUNT 4.84 mill/uL (4.70-6.10); RED CELL DISTRI WIDTH 14.4 % (11.5-15.5)
[2018-07-05 08:18] LABS: ALBUMIN 4.4 g/dL (3.2-5.0); BILIRUBIN, TOTAL 0.5 mg/dL (0.0-1.4); CREATININE 1.8 mg/dL (0.7-1.3); POTASSIUM 4.9 mmol/l (3.5-5.1); TOTAL PROTEIN 7.4 g/dL (6.3-8.2)
== END | disposition home or self-care (01) ==
LOC: LAB 07:19
PROVIDERS: ATTEND Internal Medicine Geriatric Medicine
DX: I10 Essential (primary) hypertension (principal); E11.65 Type 2 diabetes mellitus with hyperglycemia

== ENCOUNTER 2018-10-06 10:34 | Day surgery (SDC) | payer MEDICARE ==
[~2018-10-06] VITALS: Ht 172.7 cm; Wt 90.7 kg
[~2018-10-06 10:34] MED LIST changes: +ASPIRIN LOW DOS81 M1 PO; +COMBIVENT RESPIMAT IN; +HYZAAR1 TA1 PO; +LANTUS SOLOSTAR SC; -LOSARTAN/HCT1 TA1 PO; +NABUMETONE500 MG PO; +PRANDIN1 MG PO; +TRULICITY1.5 MG/0.5 SC; +ZYRTEC10 MG PO
[2018-10-06] MEDS ORDERED: PERCOCET 10/31 COMBO PO (14:05)
[2018-10-06 14:30] VITALS: BP 174/82
== END 2018-10-06 14:42 | disposition home or self-care (01) ==
LOC: ORM 10:34
PROVIDERS: ATTEND Urology
PROC: 0VTTXZZ Resection of Prepuce, External Approach (ICD-10-PCS; principal; 2018-10-06)
DX: N47.1 Phimosis (principal); N48.1 Balanitis; E11.9 Type 2 diabetes mellitus without complications; J44.9 Chronic obstructive pulmonary disease, unspecified; I10 Essential (primary) hypertension; E66.9 Obesity, unspecified; Z68.30 Body mass index [BMI] 30.0-30.9, adult; Z79.4 Long term (current) use of insulin

== ENCOUNTER 2019-06-20 | Emergency (ER) | payer MEDICARE ==
[~2019-06-20] MED LIST changes: +PERCOCET 10/31 COMBO PO
[2019-06-20] MEDS ORDERED: KEFLEX500 MG PO (12:33)
[2019-06-20] MEDS ORDERED: INVOKANA100 MG PO (12:35)
[2019-06-20] MEDS ORDERED: DULOXETINE HYDR60 MG PO (12:35)
[2019-06-20] MEDS ORDERED: TAMSULOSIN HCL0.4 MG PO (12:38)
[2019-06-20] MEDS ORDERED: HYDROCHLOROT12.5 M1 PO (12:38)
[2019-06-20] MEDS ORDERED: ATORVASTATIN CA20 MG PO (12:39)
[2019-06-20] MEDS ORDERED: PREGABALIN100 MG PO (12:39)
[2019-06-20] MEDS ORDERED: IPRATROPIU0.5 MG/3 M IN (12:44)
[2019-06-20] MEDS ORDERED: LANTUS SOL100 UNIT/M SC (12:45)
[2019-06-20] MEDS ORDERED: LOSARTAN POTAS100 MG PO (12:45)
[2019-06-20] MEDS ORDERED: TRELEGY ELLIPTA1 AER IN (12:46)
== END 2019-06-20 12:50 | disposition home or self-care (01) ==
PROC: 0HQFXZZ Repair Right Hand Skin, External Approach (ICD-10-PCS; principal; 2019-06-20)
DX: S61.011A Laceration without foreign body of right thumb without damage to nail, initial encounter (principal); I11.0 Hypertensive heart disease with heart failure; I50.9 Heart failure, unspecified; E11.9 Type 2 diabetes mellitus without complications; J44.9 Chronic obstructive pulmonary disease, unspecified; W31.1XXA Contact with metalworking machines, initial encounter; Y93.89 Activity, other specified; Y92.009 Unspecified place in unspecified non-institutional (private) residence as the place of occurrence of the external cause; Z95.5 Presence of coronary angioplasty implant and graft; Z79.4 Long term (current) use of insulin

== ENCOUNTER 2021-11-03 07:34 | Emergency (ER) | payer MEDICARE ==
[2021-11-03] VITALS (10 sets, daily range): BP systolic 149–187; BP diastolic 62–93
[~2021-11-03] VITALS: Ht 172.7 cm; Wt 95.0 kg
[~2021-11-03 07:34] MED LIST changes: +ATORVASTATIN CA20 MG PO; +DULOXETINE HYDR60 MG PO; +FARXIGA5 MG PO; +FENOFIBRATE145 MG PO; +HUMALOG100 MG/ML; +HYDROCHLOROT12.5 M1 PO; +INVOKANA100 MG PO; +IPRATROPIU0.5 MG/3 M IN; +KEFLEX500 MG PO; +LANTUS SOL100 UNIT/M SC; +LOSARTAN POTAS100 MG PO; +PREGABALIN100 MG PO; +TAMSULOSIN HCL0.4 MG PO; +TRELEGY ELLIPTA1 AER IN; +TRESIBA FL100 UNIT/M; +XYZAL ALLERGY 245 MG PO
[2021-11-03 08:14] LABS: IMMATURE GRANULOCYTES 0.1 % (0.0-5.0); MEAN CELL VOLUME 88.2 fL CALC (80.0-100.0); MEAN CORPUSCULAR HGB 28.2 pG CALC (26.0-32.0); NEUT# 5.98 thou/uL (1.82-7.42); RED BLOOD COUNT 5.35 mill/uL (4.70-6.10); RED CELL DISTRI WIDTH 13.8 % (11.5-15.5)
[2021-11-03 08:16] LABS: HEMATOCRIT 47.2 % (39.0-50.0); HEMOGLOBIN 15.1 g/dl (14.0-18.0)
[2021-11-03 08:38] LABS: ALBUMIN 4.5 g/dL (3.2-5.0); BILIRUBIN, TOTAL 0.4 mg/dL (0.0-1.4); TOTAL PROTEIN 8.3 g/dL (6.3-8.2)
[2021-11-03 08:46] LABS: CREATININE 2.9 mg/dL (0.7-1.3)
[2021-11-03 09:52] LABS: URINE BILIRUBIN - DIPSTICK NEGATIVE (NEGATIVE); URINE BLOOD DIPSTICK TRACE-INTACT (NEGATIVE); URINE COLOR YELLOW; URINE GLUCOSE - DIPSTICK 500 mg/dL (NEGATIVE); URINE KETONE NEGATIVE (NEGATIVE); URINE LEUK ESTERASE NEGATIVE (NEGATIVE); URINE PROTEIN - DIPSTICK 100 mg/dL (NEG-TRACE); URINE UROBILINOGEN - DIPSTICK 0.2 E.U./dL (0.2)
[2021-11-03 09:56] LABS: URINE NITRITE - DIPSTICK NEGATIVE (Negative)
[2021-11-03 10:01] LABS: URINE RBC 0-2 RBC/hpf (0-5)
[2021-11-03] MEDS ORDERED: HYOSCYAMINE0.125 M3 PO ×2 (13:02→15:13)
== END 2021-11-03 13:22 | disposition home or self-care (01) ==
LOC: ED 07:34
PROVIDERS: Family Medicine
DX: R10.84 Generalized abdominal pain (principal); E11.9 Type 2 diabetes mellitus without complications; I10 Essential (primary) hypertension; Z90.49 Acquired absence of other specified parts of digestive tract; Z79.4 Long term (current) use of insulin; Z20.822 Contact with and (suspected) exposure to COVID-19

== ENCOUNTER 2021-11-06 22:12 | Emergency (ER) | payer MEDICARE ==
[~2021-11-06] VITALS: Ht 172.7 cm; Wt 100.0 kg
[~2021-11-06 22:12] MED LIST changes: +HYOSCYAMINE0.125 M3 PO
[2021-11-06 22:20] VITALS: BP 150/63
[2021-11-06 22:31] VITALS: BP 129/63
[2021-11-06 22:54] VITALS: BP 136/57
[2021-11-06 23:00] VITALS: BP 122/52
[2021-11-06 23:01] LABS: IMMATURE GRANULOCYTES 0.2 % (0.0-5.0); MEAN CELL VOLUME 88.8 fL CALC (80.0-100.0); MEAN CORPUSCULAR HGB 28.2 pG CALC (26.0-32.0); MEAN CORPUSCULAR HGB CONC 31.8 g/dL CAL (32.0-36.0); NEUT# 10.23 thou/uL (1.82-7.42); RED BLOOD COUNT 4.54 mill/uL (4.70-6.10); RED CELL DISTRI WIDTH 13.7 % (11.5-15.5)
[2021-11-06 23:02] LABS: HEMATOCRIT 40.3 % (39.0-50.0); HEMOGLOBIN 12.8 g/dl (14.0-18.0)
[2021-11-06 23:05] LABS: URINE BILIRUBIN - DIPSTICK NEGATIVE (NEGATIVE); URINE BLOOD DIPSTICK SMALL (NEGATIVE); URINE COLOR YELLOW; URINE GLUCOSE - DIPSTICK >=1000 mg/dL (NEGATIVE); URINE KETONE NEGATIVE (NEGATIVE); URINE LEUK ESTERASE NEGATIVE (NEGATIVE); URINE PROTEIN - DIPSTICK 100 mg/dL (NEG-TRACE); URINE UROBILINOGEN - DIPSTICK 0.2 E.U./dL (0.2)
[2021-11-06 23:07] LABS: URINE NITRITE - DIPSTICK NEGATIVE (Negative)
[2021-11-06 23:14] LABS: BILIRUBIN, TOTAL 0.4 mg/dL (0.0-1.4); CREATININE 3.4 mg/dL (0.7-1.3); POTASSIUM 4.5 mmol/l (3.5-5.1); TOTAL PROTEIN 7.4 g/dL (6.3-8.2)
[2021-11-06 23:14] LABS: URINE RBC 0-2 RBC/hpf (0-5)
[2021-11-06 23:31] VITALS: BP 131/61
[2021-11-07] VITALS (7 sets, daily range): BP systolic 134–152; BP diastolic 55–72
== END 2021-11-07 03:58 | disposition short-term general hospital (02) ==
LOC: ED 22:12
PROVIDERS: Emergency Medicine
DX: I71.02 Dissection of abdominal aorta (principal); J18.9 Pneumonia, unspecified organism; M48.56XA Collapsed vertebra, not elsewhere classified, lumbar region, initial encounter for fracture; N17.9 Acute kidney failure, unspecified; I10 Essential (primary) hypertension; E11.9 Type 2 diabetes mellitus without complications; Z79.4 Long term (current) use of insulin; Z20.822 Contact with and (suspected) exposure to COVID-19

== ENCOUNTER 2023-05-26 08:02 | Day surgery (SDC) | payer MEDICARE ==
[~2023-05-26 08:02] MED LIST changes: +APRESOLINE50 MG PO; +ASPIRIN 81 LOW81 MG PO; +COZAAR25 MG PO; +CRAN-MAX500 MG PO; +D31000 UNIT PO; +DULOXETINE HCL60 MG PO; +FAMOTIDINE20 M3 PO; +FARXIGA5 MG; +FENOFIBRATE160 MG PO; +HUMALOG100 UNIT SC; +HYDROCODONE BIT1 TA7 PO; +LANTUS100 MG/ML SC; +LASIX20 MG PO; +LOVASTATIN10 MG PO; +MULTIVITAMI9 PO; +OMEPRAZOLE20 MG PO; +POTASSIUM99 MG PO; +PROAIR DIG108 MCG/AC; +SINGULAIR10 MG PO; +TRELEGY ELLIPTA1 AER; +TRULICITY3 MG/0.5 M; +[UNRECOGNIZED DRUG - OTHER]
[2023-05-26] MEDS ORDERED: FAMOTIDINE 10MG/ML 2ML SDV IV ONE (08:04)
[2023-05-26] MEDS ORDERED: SODIUM CHLORIDE 0.9% 1,000 ML IV ONE (08:04)
[2023-05-26] MEDS ORDERED: DEXTROSE 5% w/NACL 0.45 1,000 ML IV ONE (08:37)
[2023-05-26] MEDS ORDERED: STERILE WATER FOR IRRIGATION 1,000 ML BTL IR ONE (09:45)
[2023-05-26 10:14] VITALS: BP 102/46
[2023-05-26] MEDS ORDERED: PROPOFOL 200 MG/20 ML VIAL IV ONE (12:38)
[2023-05-26] MEDS ORDERED: LIDOCAINE HCL 2% 2ML SDV IV ONE (12:38)
[2023-05-26] MEDS ORDERED: GLYCOPYRROLATE 0.2 MG/ML IV ONE (12:38)
[2023-05-26] MEDS ORDERED: PHENYLEPHRINE HCL 10 MG/ML VIAL IV ONE (12:38)
== END 2023-05-26 10:43 | disposition home or self-care (01) ==
LOC: ORM 08:02
PROVIDERS: ATTEND Surgery
PROC: 0DBK8ZX Excision of Ascending Colon, Via Natural or Artificial Opening Endoscopic, Diagnostic (ICD-10-PCS; principal; 2023-05-26)
PROC: 0DJ08ZZ Inspection of Upper Intestinal Tract, Via Natural or Artificial Opening Endoscopic (ICD-10-PCS; 2023-05-26)
DX: D64.9 Anemia, unspecified (principal); D12.2 Benign neoplasm of ascending colon; D17.5 Benign lipomatous neoplasm of intra-abdominal organs; K64.8 Other hemorrhoids; I10 Essential (primary) hypertension; E11.9 Type 2 diabetes mellitus without complications; F17.200 Nicotine dependence, unspecified, uncomplicated; Z79.4 Long term (current) use of insulin

== ENCOUNTER 2023-12-05 18:09 | Emergency (ER) | payer MEDICARE ==
[~2023-12-05] VITALS: Ht 172.7 cm; Wt 100.0 kg
[2023-12-05] MEDS ORDERED: IPRATROPIUM-Albuterol 0.5MG-2.5MG/3 ML NEB ONE ×2 (18:20)
[2023-12-05] MEDS ORDERED: methylPREDNISolone SODIUM SUCC 125 MG/2 ML SDV IV ONE (18:25)
[2023-12-05 18:41] LABS: HEMATOCRIT 34.9 % (39.0-50.0); HEMOGLOBIN 10.9 g/dl (14.0-18.0); IMMATURE GRANULOCYTES 0.4 % (0.0-5.0); LYMPH% 2.3 % (15-41); MEAN CELL VOLUME 90.6 fL CALC (80.0-100.0); MEAN CORPUSCULAR HGB 28.3 pG CALC (26.0-32.0); MEAN CORPUSCULAR HGB CONC 31.2 g/dL CAL (32.0-36.0); MONO% 2.4 % (2-13); NEUT# 20.1 thou/uL (1.82-7.42); NEUT% 94.9 % (42-76); RED BLOOD COUNT 3.85 mill/uL (4.70-6.10); RED CELL DISTRI WIDTH 14.8 % (11.5-15.5)
[2023-12-05 18:54] LABS: ALBUMIN 3.8 g/dL (3.2-5.0); CREATININE 3.8 mg/dL (0.7-1.3); POTASSIUM 4.4 mmol/l (3.5-5.1); TOTAL PROTEIN 7.4 g/dL (6.3-8.2)
[2023-12-05 18:55] LABS: BILIRUBIN, TOTAL 0.7 mg/dL (0.2-1.3)
[2023-12-05] MEDS ORDERED: LABETALOL HCL 20 MG/ 4 ML CARTRG IV ONE (18:55)
[2023-12-05] MEDS ORDERED: AZITHROMYCIN 500 MG in SODIUM CHLORIDE 0.9% 250 ML IV ONE (19:15)
[2023-12-05] MEDS ORDERED: SODIUM CHLORIDE 0.9% 1,000 ML IV ONE (19:15)
[2023-12-05] MEDS ORDERED: ENOXAPARIN SODIUM 100 MG/ML SYR SC ONE (20:00)
[2023-12-05] MEDS ORDERED: ASPIRIN 81 MG/TAB PO ONE (20:00)
[2023-12-05] MEDS ORDERED: ASPIRIN 81 MG/TAB ONE (20:07)
[2023-12-05 22:08] VITALS: BP 165/72
== END 2023-12-05 22:08 | disposition short-term general hospital (02) ==
LOC: ED 18:09
PROVIDERS: Nurse Practitioner
DX: J18.9 Pneumonia, unspecified organism (principal); J44.0 Chronic obstructive pulmonary disease with (acute) lower respiratory infection; I21.4 Non-ST elevation (NSTEMI) myocardial infarction; N17.9 Acute kidney failure, unspecified; I13.0 Hypertensive heart and chronic kidney disease with heart failure and stage 1 through stage 4 chronic kidney disease, or unspecified chronic kidney disease; E11.22 Type 2 diabetes mellitus with diabetic chronic kidney disease; N18.9 Chronic kidney disease, unspecified; I50.9 Heart failure, unspecified; I25.10 Atherosclerotic heart disease of native coronary artery without angina pectoris; Z79.4 Long term (current) use of insulin; Z72.0 Tobacco use; Z20.822 Contact with and (suspected) exposure to COVID-19
CPT/HCPCS: J1650

== ENCOUNTER 2023-12-18 10:49 | Inpatient (IN) | payer MEDICARE ==
[~2023-12-18] VITALS: Ht 172.7 cm; Wt 93.8 kg
[2023-12-18] VITALS (29 sets, daily range): BP systolic 60–150; BP diastolic 34–86
[2023-12-18] MEDS ORDERED: VANCOMYCIN HCL 1 GM in SODIUM CHLORIDE 0.9% 250 ML IV ONE (10:55)
[2023-12-18] MEDS ORDERED: SODIUM CHLORIDE 0.9% 1,000 ML IV ONE (10:55)
[2023-12-18] MEDS ORDERED: CEFEPIME HYDROCHLORIDE 2 GM in SODIUM CHLORIDE 0.9% 100 ML IV ONE (10:55)
[2023-12-18] MEDS ORDERED: IPRATROPIUM-Albuterol 0.5MG-2.5MG/3 ML NEB ONE ×2 (11:10)
[2023-12-18 11:39] LABS: BASO% 0.1 % (0-3); EOS% 1.7 % (0-8); IMMATURE GRANULOCYTES 0.3 % (0.0-5.0); LYMPH% 3.9 % (15-41); MEAN CELL VOLUME 89.8 fL CALC (80.0-100.0); MEAN CORPUSCULAR HGB 27.5 pG CALC (26.0-32.0); MEAN CORPUSCULAR HGB CONC 30.6 g/dL CAL (32.0-36.0); MONO% 6.2 % (2-13); NEUT# 17.35 thou/uL (1.82-7.42); NEUT% 87.8 % (42-76); RED BLOOD COUNT 2.84 mill/uL (4.70-6.10); RED CELL DISTRI WIDTH 15.4 % (11.5-15.5)
[2023-12-18 11:42] LABS: HEMATOCRIT 25.5 % (39.0-50.0); HEMOGLOBIN 7.8 g/dl (14.0-18.0)
[2023-12-18 11:48] LABS: CREATININE 4.7 mg/dL (0.7-1.3); TOTAL PROTEIN 6.3 g/dL (6.3-8.2)
[2023-12-18 12:00] LABS: ALBUMIN 2.9 g/dL (3.2-5.0); BILIRUBIN, TOTAL 0.3 mg/dL (0.2-1.3)
[2023-12-18 12:32] LABS: URINE BILIRUBIN - DIPSTICK Negative (NEGATIVE); URINE BLOOD DIPSTICK Negative (NEGATIVE); URINE GLUCOSE - DIPSTICK 250 mg/dL (NEGATIVE); URINE KETONE Negative (NEGATIVE); URINE LEUK ESTERASE Trace (NEGATIVE); URINE NITRITE - DIPSTICK Negative (Negative); URINE PROTEIN - DIPSTICK 100 mg/dL (NEG-TRACE); URINE SPECIFIC GRAVITY 1.015; URINE UROBILINOGEN - DIPSTICK 0.2 E.U./dL (0.2)
[2023-12-18 12:34] LABS: URINE COLOR Yellow; URINE WBC 0-2 WBC/hpf (0-5)
[2023-12-18 12:35] LABS: URINE EPITHELIAL CELLS MODERATE EPI/hpf (0-FEW); URINE MUCUS MANY hpf (NONE-FEW)
[2023-12-18] MEDS ORDERED: MAGNESIUM HYDROXIDE 30 ML UDC PO PRN (14:20)
[2023-12-18] MEDS ORDERED: ACETAMINOPHEN 325 MG/TAB PO PRN (14:20)
[2023-12-18] MEDS ORDERED: VITAMIN D22000 UNIT PO (15:42)
[2023-12-18] MEDS ORDERED: INSULIN LISPRO 100 UNITS/ML ML SC SCH (17:00)
[2023-12-18] MEDS ORDERED: VANCOMYCIN HCL 1 GM in SODIUM CHLORIDE 0.9% 250 ML IV SCH (18:00)
[2023-12-18] MEDS ORDERED: IPRATROPIUM-Albuterol 0.5MG-2.5MG/3 ML NEB SCH (19:00)
[2023-12-18] MEDS ORDERED: INSULIN DETEMIR 100 UNITS/ML SC SCH (21:00)
[2023-12-18] MEDS ORDERED: ATORVASTATIN CALCIUM 20 MG/TAB PO SCH (21:00)
[2023-12-18] MEDS ORDERED: Heparin SODIUM (Porcine) 5,000 UNITS/ML SDV SC SCH (22:00)
[2023-12-18] MEDS ORDERED: CEFEPIME HYDROCHLORIDE 1 GM in SODIUM CHLORIDE 0.9% 50 ML IV SCH (23:00)
[2023-12-19] VITALS (7 sets, daily range): BP systolic 125–157; BP diastolic 51–60
[2023-12-19 05:14] LABS: BASO% 0.1 % (0-3); EOS% 2.5 % (0-8); HEMATOCRIT 26.1 % (39.0-50.0); IMMATURE GRANULOCYTES 0.3 % (0.0-5.0); LYMPH% 5.2 % (15-41); MEAN CELL VOLUME 90.3 fL CALC (80.0-100.0); MEAN CORPUSCULAR HGB 27.7 pG CALC (26.0-32.0); MEAN CORPUSCULAR HGB CONC 30.7 g/dL CAL (32.0-36.0); MONO% 6.9 % (2-13); NEUT# 16.06 thou/uL (1.82-7.42); RED BLOOD COUNT 2.89 mill/uL (4.70-6.10); RED CELL DISTRI WIDTH 15.3 % (11.5-15.5)
[2023-12-19 05:45] LABS: ALBUMIN 2.6 g/dL (3.2-5.0); BILIRUBIN, TOTAL 0.3 mg/dL (0.2-1.3); CHOLESTEROL HDL RATIO 2.2 (<4.4 (CALC)); CREATININE 4.3 mg/dL (0.7-1.3); MAGNESIUM 1.6 mg/dL (1.6-2.3); POTASSIUM 4.8 mmol/l (3.5-5.1); TOTAL PROTEIN 5.8 g/dL (6.3-8.2)
[2023-12-19] MEDS ORDERED: TAMSULOSIN HCL 0.4 MG CAP PO SCH (08:00)
[2023-12-19] MEDS ORDERED: FERROUS SULFATE 325 MG/TAB PO SCH (09:00)
[2023-12-19] MEDS ORDERED: FUROSEMIDE 40 MG/4 ML SDV IV SCH (12:00)
[2023-12-19] MEDS ORDERED: GUAIFENESIN 600 MG/TAB PO SCH (12:00)
[2023-12-19] MEDS ORDERED: HYDROcodone 5 MG/Acetaminophen 325 MG/COMBO PO PRN (14:20)
[2023-12-19] MEDS ORDERED: FLUTICASONE PROPIONATE (Nasal) 50MCG/SPRAY INH SCH (14:51)
[2023-12-19 16:29] LABS: BASO% 0.1 % (0-3); EOS% 2.6 % (0-8); HEMATOCRIT 26.6 % (39.0-50.0); HEMOGLOBIN 8.2 g/dl (14.0-18.0); IMMATURE GRANULOCYTES 0.2 % (0.0-5.0); LYMPH% 3.8 % (15-41); MEAN CELL VOLUME 89.3 fL CALC (80.0-100.0); MEAN CORPUSCULAR HGB 27.5 pG CALC (26.0-32.0); MEAN CORPUSCULAR HGB CONC 30.8 g/dL CAL (32.0-36.0); MONO% 7.4 % (2-13); NEUT# 13.97 thou/uL (1.82-7.42); NEUT% 85.9 % (42-76); RED BLOOD COUNT 2.98 mill/uL (4.70-6.10); RED CELL DISTRI WIDTH 15.4 % (11.5-15.5)
[2023-12-19] MEDS ORDERED: VANCOMYCIN HCL 1,500 MG in SODIUM CHLORIDE 0.9% 470 ML IV SCH (20:00)
[2023-12-19] MEDS ORDERED: MONTELUKAST SODIUM 10 MG/TAB PO SCH (21:00)
[2023-12-19] MEDS ORDERED: methylPREDNISolone Sod Succ 40 MG/ML SDV IV SCH (21:00)
[2023-12-19] MEDS ORDERED: METOPROLOL TARTRATE 25 MG/TAB PO SCH (21:00)
[2023-12-19] MEDS ORDERED: INSULIN DETEMIR 100 UNITS/ML SC SCH (21:00)
[2023-12-20 05:25] VITALS: BP 143/60
[2023-12-20 05:30] LABS: BASO% 0.1 % (0-3); EOS% 0.7 % (0-8); HEMATOCRIT 26.3 % (39.0-50.0); HEMOGLOBIN 8.2 g/dl (14.0-18.0); IMMATURE GRANULOCYTES 0.4 % (0.0-5.0); LYMPH% 3.3 % (15-41); MEAN CELL VOLUME 89.5 fL CALC (80.0-100.0); MEAN CORPUSCULAR HGB 27.9 pG CALC (26.0-32.0); MEAN CORPUSCULAR HGB CONC 31.2 g/dL CAL (32.0-36.0); MONO% 0.9 % (2-13); NEUT# 13.44 thou/uL (1.82-7.42); NEUT% 94.6 % (42-76); RED BLOOD COUNT 2.94 mill/uL (4.70-6.10); RED CELL DISTRI WIDTH 15.3 % (11.5-15.5)
[2023-12-20 05:33] LABS: ALBUMIN 2.4 g/dL (3.2-5.0); BILIRUBIN, TOTAL 0.3 mg/dL (0.2-1.3); CREATININE 4.1 mg/dL (0.7-1.3); MAGNESIUM 1.6 mg/dL (1.6-2.3); POTASSIUM 5.1 mmol/l (3.5-5.1); TOTAL PROTEIN 5.5 g/dL (6.3-8.2)
[2023-12-20 05:59] LABS: C-REACTIVE PROTEIN 31.6 mg/dL (0-0.9)
[2023-12-20] MEDS ORDERED: FUROSEMIDE 40 MG/4 ML SDV IV SCH (06:00)
[2023-12-20 07:01] VITALS: BP 139/57
[2023-12-20] MEDS ORDERED: FLUTICASONE PROPIONATE (Nasal) 50MCG/SPRAY INH SCH (09:00)
[2023-12-20] MEDS ORDERED: LOSARTAN Potassium 25 MG/TAB PO SCH (09:00)
[2023-12-20] MEDS ORDERED: SODIUM BICARBONATE 650 MG TAB PO SCH (10:00)
[2023-12-20 10:42] VITALS: BP 147/52
[2023-12-20] MEDS ORDERED: Calcium Acetate (Phosphate Bin 667 MG/CAP PO SCH (11:30)
[2023-12-20 15:06] VITALS: BP 116/46
[2023-12-20] MEDS ORDERED: EPOETIN ALFA-EPBX 10,000 UNIT/ML VIAL SC SCH (17:00)
[2023-12-20 19:17] VITALS: BP 135/49
[2023-12-21] VITALS (8 sets, daily range): BP systolic 114–170; BP diastolic 36–57
[2023-12-21 05:09] LABS: BASO% 0.1 % (0-3); HEMOGLOBIN 8.2 g/dl (14.0-18.0); IMMATURE GRANULOCYTES 0.2 % (0.0-5.0); LYMPH% 3.5 % (15-41); MEAN CELL VOLUME 88.1 fL CALC (80.0-100.0); MEAN CORPUSCULAR HGB 27.8 pG CALC (26.0-32.0); MEAN CORPUSCULAR HGB CONC 31.5 g/dL CAL (32.0-36.0); MONO% 1.8 % (2-13); NEUT# 12.2 thou/uL (1.82-7.42); NEUT% 94.4 % (42-76); RED BLOOD COUNT 2.95 mill/uL (4.70-6.10); RED CELL DISTRI WIDTH 15.3 % (11.5-15.5)
[2023-12-21 05:48] LABS: ALBUMIN 2.7 g/dL (3.2-5.0); CREATININE 4.3 mg/dL (0.7-1.3); MAGNESIUM 1.8 mg/dL (1.6-2.3)
[2023-12-21 06:07] LABS: POTASSIUM 5.4 mmol/l (3.5-5.1)
[2023-12-21] MEDS ORDERED: predniSONE 20 MG/TAB PO SCH (09:00)
[2023-12-21] MEDS ORDERED: SODIUM ZIRCONIUM CYCLOSILICATE 10 GM PAK PO SCH (09:30)
[2023-12-21] MEDS ORDERED: AZITHROMYCIN 250 MG/TAB PO SCH (11:30)
[2023-12-21] MEDS ORDERED: INSULIN DETEMIR 100 UNITS/ML SC SCH (21:00)
[2023-12-22 00:09] VITALS: BP 138/46
[2023-12-22 03:26] VITALS: BP 142/46
[2023-12-22 04:54] VITALS: BP 142/46
[2023-12-22 05:48] LABS: BASO% 0.1 % (0-3); EOS% 1.3 % (0-8); HEMATOCRIT 25.7 % (39.0-50.0); IMMATURE GRANULOCYTES 0.3 % (0.0-5.0); LYMPH% 10.9 % (15-41); MEAN CELL VOLUME 88.3 fL CALC (80.0-100.0); MEAN CORPUSCULAR HGB 27.5 pG CALC (26.0-32.0); MEAN CORPUSCULAR HGB CONC 31.1 g/dL CAL (32.0-36.0); MONO% 5.6 % (2-13); NEUT# 8.92 thou/uL (1.82-7.42); NEUT% 81.8 % (42-76); RED BLOOD COUNT 2.91 mill/uL (4.70-6.10); RED CELL DISTRI WIDTH 15.4 % (11.5-15.5)
[2023-12-22 06:06] LABS: ALBUMIN 2.7 g/dL (3.2-5.0); CREATININE 3.7 mg/dL (0.7-1.3); POTASSIUM 4.5 mmol/l (3.5-5.1)
[2023-12-22 06:30] VITALS: BP 156/68
[2023-12-22 06:45] VITALS: BP 142/61
[2023-12-22] MEDS ORDERED: FUROSEMIDE 40 MG/TAB PO SCH (09:00)
[2023-12-22] MEDS ORDERED: FUROSEMIDE 20 MG/TAB PO SCH (09:00)
[2023-12-22 10:30] VITALS: BP 146/53
[2023-12-22] MEDS ORDERED: OMNICEF300 MG PO (11:23)
== END 2023-12-22 15:32 | DRG 871 ==
LOC: ED 10:49 → ED-I 12:20 → ED 12:42 → MS2 12:43
PROVIDERS: Family Medicine; Internal Medicine Nephrology; Nurse Practitioner Family; ADMIT Student in an Organized Health Care Education/Training Program; ATTEND Student in an Organized Health Care Education/Training Program
DX: A41.9 Sepsis, unspecified organism (principal); J18.9 Pneumonia, unspecified organism; N17.1 Acute kidney failure with acute cortical necrosis; J96.01 Acute respiratory failure with hypoxia; I13.0 Hypertensive heart and chronic kidney disease with heart failure and stage 1 through stage 4 chronic kidney disease, or unspecified chronic kidney disease; J44.0 Chronic obstructive pulmonary disease with (acute) lower respiratory infection; N18.4 Chronic kidney disease, stage 4 (severe); E87.20 Acidosis, unspecified; E87.1 Hypo-osmolality and hyponatremia; N25.81 Secondary hyperparathyroidism of renal origin; R65.20 Severe sepsis without septic shock; E86.9 Volume depletion, unspecified; E11.22 Type 2 diabetes mellitus with diabetic chronic kidney disease; I50.9 Heart failure, unspecified; D50.9 Iron deficiency anemia, unspecified; E87.5 Hyperkalemia; T38.0X5A Adverse effect of glucocorticoids and synthetic analogues, initial encounter; E66.9 Obesity, unspecified; F17.200 Nicotine dependence, unspecified, uncomplicated; Z79.4 Long term (current) use of insulin; Z68.36 Body mass index [BMI] 36.0-36.9, adult; Z20.822 Contact with and (suspected) exposure to COVID-19
CPT/HCPCS: J0692; J3370; Q5106 EC

== ENCOUNTER 2024-03-15 21:32 | Emergency (ER) | payer MEDICARE ==
[~2024-03-15] VITALS: Ht 172.7 cm; Wt 95.0 kg
[2024-03-15] VITALS (8 sets, daily range): BP systolic 111–145; BP diastolic 42–102
[~2024-03-15 21:32] MED LIST changes: +OMNICEF300 MG PO; +VITAMIN D22000 UNIT PO
[2024-03-15 22:01] LABS: BASO% 0.3 % (0-3); IMMATURE GRANULOCYTES 0.4 % (0.0-5.0); LYMPH% 8.7 % (15-41); MEAN CORPUSCULAR HGB 31.3 pG CALC (26.0-32.0); MEAN CORPUSCULAR HGB CONC 26.3 g/dL CAL (32.0-36.0); MONO% 4.4 % (2-13); NEUT# 6.65 thou/uL (1.82-7.42); NEUT% 86.2 % (42-76); RED BLOOD COUNT 1.47 mill/uL (4.70-6.10); RED CELL DISTRI WIDTH 17.6 % (11.5-15.5)
[2024-03-15 22:08] LABS: HEMATOCRIT 17.5 % (39.0-50.0); HEMOGLOBIN 4.6 g/dl (14.0-18.0)
[2024-03-15] MEDS ORDERED: DOXYCYCLINE HYCLATE 100 MG/CAP PO ONE (22:10)
[2024-03-15] MEDS ORDERED: DEXAMETHASONE SOD. PHOSPHATE 10 MG/ML VIAL IV ONE (22:10)
[2024-03-15] MEDS ORDERED: ALBUTEROL SULFATE 2.5 MG VIAL IN ONE (22:10)
[2024-03-15 22:20] LABS: ALBUMIN 3.5 g/dL (3.2-5.0); BILIRUBIN, TOTAL 0.2 mg/dL (0.2-1.3); CREATININE 4.5 mg/dL (0.7-1.3); TOTAL PROTEIN 6.6 g/dL (6.3-8.2)
[2024-03-15 22:26] LABS: POTASSIUM 5.9 mmol/l (3.5-5.1)
[2024-03-15] MEDS ORDERED: DEXTROSE 50% 50 ML/SYR IV ONE (23:10)
[2024-03-15] MEDS ORDERED: CALCIUM GLUCONATE 1 GM in SODIUM CHLORIDE 0.9% 50 ML IV ONE (23:10)
[2024-03-15] MEDS ORDERED: INSULIN REGULAR (HUMAN) 100 UNIT/ML INJ IV ONE (23:10)
[2024-03-16] VITALS (9 sets, daily range): BP systolic 135–163; BP diastolic 52–69
[2024-03-16] MEDS ORDERED: DEXTROSE 10% 500 ML BAG IV ONE (00:35)
[2024-03-16] MEDS ORDERED: SODIUM CHLORIDE 0.9% 250 ML IV ONE (01:00)
[2024-03-16] MEDS ORDERED: ALBUTEROL SULFATE 2.5 MG VIAL IN ONE (01:50)
[2024-03-16] MEDS ORDERED: Pantoprazole Sodium 40 MG VIAL (Protonix) IV ONE (02:10)
== END 2024-03-16 02:15 ==
LOC: ED 21:32
PROVIDERS: Emergency Medicine
PROC: 30233N1 Transfusion of Nonautologous Red Blood Cells into Peripheral Vein, Percutaneous Approach (ICD-10-PCS; principal; 2024-03-16)
DX: K92.1 Melena (principal); D64.9 Anemia, unspecified; E87.5 Hyperkalemia; N17.9 Acute kidney failure, unspecified; I13.0 Hypertensive heart and chronic kidney disease with heart failure and stage 1 through stage 4 chronic kidney disease, or unspecified chronic kidney disease; E11.22 Type 2 diabetes mellitus with diabetic chronic kidney disease; I50.9 Heart failure, unspecified; N18.9 Chronic kidney disease, unspecified; J44.9 Chronic obstructive pulmonary disease, unspecified
CPT/HCPCS: J2470; P9016